=== PATIENT | male | born 1940 | race Caucasian/White ===

== ENCOUNTER 2016-08-10 20:22 | Inpatient (IN) | payer MEDICARE ==
[2016-08-10 20:53] LABS: BASO # 0.1 K/mm3 (0.0-0.2); BASO % 0.5 % (0.2-1.0); EOS % 0.3 % (0.9-2.9); HEMATOCRIT 21.2 % (32.0-52.0); HEMOGLOBIN 6.8 gm/l (14.0-18.0); IMM NEUT% 0.3 % (0-1); LYMPH # 1.4 (1.0-4.8); LYMPH % 13.9 % (15-45); MEAN CELL VOLUME 105.5 fl (80.0-94.0); MEAN CORPUSCULAR HEMOGLOBIN 33.8 pg (27.0-31.0); MEAN CORPUSCULAR HGB CONC 32.1 g/dl (33.0-37.0); MEAN PLATELET VOLUME 11.9 fl (7.4-10.4); MONO # 0.6 (0.0-0.8); MONO % 5.4 % (4-12); NEUT % 79.6 % (43-75); PLATELET COUNT 372 K/mm3 (130-400)
[2016-08-10] MEDS ORDERED: SODIUM CHLORIDE 0.9% 1,000 ML ONE (20:55)
[2016-08-10] MEDS ORDERED: ASPIRIN CHEWTAB 81 MG TABLET ONE (20:55)
[2016-08-10] MEDS ORDERED: NITROGLYCERIN OINT 1 G (DOSE) ONE (20:55)
[2016-08-10] MEDS ORDERED: MORPHINE SULFATE 2 MG/ML SYRINGE ONE (20:56)
[2016-08-10 21:00] LABS: CALCIUM 8.1 mg/dL (8.6-10.3)
[2016-08-10 21:22] LABS: INR 2.82; PROTHROMBIN TIME 31.3 SECONDS (9.3-11.4)
[2016-08-10 22:19] LABS: ABSOLUTE NEUTROPHIL COUNT 8.2 K/mm3 (1.8-7.7); BASO % 0.4 % (0.2-1.0); EOS % 0.1 % (0.9-2.9); HEMATOCRIT 20.4 % (32.0-52.0); IMM NEUT # 0.1 K/mm3 (0-0.2); IMM NEUT% 0.5 % (0-1); LYMPH # 1.3 (1.0-4.8); LYMPH % 12.5 % (15-45); MEAN CELL VOLUME 105.7 fl (80.0-94.0); MEAN CORPUSCULAR HEMOGLOBIN 33.2 pg (27.0-31.0); MEAN CORPUSCULAR HGB CONC 31.4 g/dl (33.0-37.0); MEAN PLATELET VOLUME 11.5 fl (7.4-10.4); MONO # 0.9 (0.0-0.8); MONO % 8.7 % (4-12); NEUT % 77.8 % (43-75); PLATELET COUNT 346 K/mm3 (130-400)
[2016-08-10 22:26] LABS: HEMOGLOBIN 6.4 gm/l (14.0-18.0)
[2016-08-10] MEDS ORDERED: ACETAMINOPHEN 325 MG TABLET PO PRN (23:14)
[2016-08-10] MEDS ORDERED: MENTHOL/CETYLPYRD 1 EACH LOZENGE PO PRN (23:14)
[2016-08-10] MEDS ORDERED: BLISTEX LIPSTICK 1 EACH TP PRN (23:14)
[2016-08-10] MEDS ORDERED: DIPHENHYDRAMINE HCL 25 MG CAPSULE PO ONE (23:14)
[2016-08-10] MEDS ORDERED: FUROSEMIDE 20 MG/2 ML VIAL IV ONE (23:14)
[2016-08-10] MEDS ORDERED: SODIUM CHLORIDE 0.9% 100 ML IV PRN (23:14)
[2016-08-10] MEDS ORDERED: SODIUM CHLORIDE 0.9% 500 ML IV PRN (23:14)
[2016-08-10] MEDS ORDERED: METOPROLOL TARTRATE 100 MG TABLET PO ONE (23:14)
[2016-08-10] MEDS ORDERED: TRAMADOL HCL 50 MG TABLET PO PRN (23:20)
[2016-08-10 23:21] VITALS: BMI 21.9
[2016-08-10] MEDS ORDERED: BLOOD Y PLUMSET W/CASSETTE ONE (23:32)
[2016-08-10] MEDS ORDERED: SODIUM CHLORIDE 0.9% 500 ML ONE (23:32)
[2016-08-10 23:39] LABS: ANISOCYTOSIS 1+; PLATELET ESTIMATE NORMAL (NORMAL)
[2016-08-11] MEDS: PANTOPRAZOLE SODIUM 40 MG VIAL IV SCH ×2 (01:57→20:29)
[2016-08-11] MEDS: ATROPINE SULFATE 1% 100 GTTS/BOT SOLN.DROP OD SCH ×3 (05:22→20:44)
[2016-08-11 05:50] LABS: HEMATOCRIT 26.6 % (32.0-52.0); MEAN CORPUSCULAR HEMOGLOBIN 32.5 pg (27.0-31.0); MEAN CORPUSCULAR HGB CONC 33.8 g/dl (33.0-37.0); RED CELL DISTRIBUTION WIDTH 17.8 % (11.5-14.5)
[2016-08-11 06:07] LABS: INR 2.74; PROTHROMBIN TIME 30.3 SECONDS (9.3-11.4)
[2016-08-11 06:13] LABS: TROPONIN I 0.03 ng/ml (0.0-0.06)
--- NOTE | 2016-08-11 06:18 | PDOC43 ---
- Subjective Chief Complaint: Anemia, chest pain Patient reports feeling fine. No more of the instant tired feeling and no chest pains so far (but hasn't been up much yet). Given 2 units PRBC. Hungry for breakfast. No abd pain. - Objective Vital Signs Temperature 98.1 F 08/11/16 03:05 Pulse Rate 65 08/11/16 03:05 Respiratory Rate 16 08/11/16 03:05 Blood Pressure 135/73 08/11/16 03:05 O2 Saturation by Pulse Oximetry 96 08/11/16 03:05 Oxygen Delivery Method Room Air Oxygen Flow Rate 0 Vital Signs Last 12 Hours Temp Pulse Resp BP Pulse Ox 08/11/16 03:05 98.1 F 65 16 135/73 96 08/11/16 03:01 98 F 61 16 133/68 95 08/11/16 02:31 97.9 F 63 16 140/75 96 08/11/16 02:16 97.9 F 64 16 140/72 95 08/11/16 01:54 97.9 F 64 16 140/72 95 08/11/16 01:49 97.9 F 67 15 135/70 96 08/11/16 01:19 97.9 F 68 14 130/61 98 08/11/16 00:49 98.7 F 74 16 132/71 98 08/11/16 00:19 97.9 F 75 18 144/66 97 08/11/16 00:04 97.8 F 76 20 155/72 98 08/10/16 23:51 97.8 F 76 20 155/72 98 08/10/16 23:16 98 08/10/16 23:14 97.9 F 84 18 188/69 100 Intake and Output 08/09/16 08/10/16 08/11/16 23:59 23:59 23:59 Intake Total 863 Output Total 50 1175 Balance -50 -312 General: Alert, Cooperative, No Acute Distress HEENT: Atraumatic Lungs: Clear to Auscultation Bilaterally (remarkably clear considering smoking hx) Cardiovascular: Regular Rate and Rhythm, Murmur (II/ MELQUIADES) Abdomen: Soft, Bruits (noted), Normal Bowel Sounds, Non-Distended, Other ( healed scars.), No Tenderness, No Rebounding Extremities: Other (SCDs), No Edema Neurological: Normal Speech Psych/Mental Status: Normal Affect, Normal Mood Laboratory 08/11/16 05:30 08/11/16 05:30 RBC 2.77 L MCV 96.0 H MCH 32.5 H RDW 17.8 H Current Medications: Current meds reviewed in EMR. Active Medications Acetaminophen (Tylenol) 650 mg PO Q6H PRN PRN Reason: Pain or Temperature > 100.5 F Amlodipine Besylate (Norvasc) 5 mg PO DAILY [facility] Benzocaine/Menthol (Cepacol) 1 each PO PRN PRN PRN Reason: Sore Throat Docusate Sodium (Colace) 100 mg PO BID [facility] Sodium Chloride (Sodium Chloride 0.9%) 500 mls @ 25 mls/hr IV .Q20H PRN PRN Reason: Blood Transfusion Sodium Chloride (Sodium Chloride 0.9%) 100 mls @ 25 mls/hr IV PRN PRN PRN Reason: Flush Insulin Aspart (Novolog (Dose)) 6 units SUB-Q TIDWM [facility] Insulin Glargine (Lantus (Dose)) 22 units SUB-Q QPM [facility] Levothyroxine Sodium (Levothroid) 125 mcg PO QAMAC [facility] Metoprolol Tartrate (Lopressor) 100 mg PO BID [facility] Pantoprazole Sodium (Protonix) 40 mg IV BEDTIME [facility] Last Admin: 08/11/16 01:57 Dose: 40 mg Petrolatum/Paraffin/Mineral Oil (Blistex) 1 each TP PRN PRN PRN Reason: Dry and/or chapped lips Sodium Chloride (Normal Saline 10ml Flush) 10 - 50 ml IV PRN PRN PRN Reason: IV Flush Tramadol HCl (Ultram) 50 - 100 mg PO Q6H PRN PRN Reason: Pain Warfarin Sodium (Coumadin) 5 mg PO DAILY@1600 [facility] - Problems: Assessment/Plan (1) Anemia due to blood loss Status: AcuteAssessment/Plan: Pt with decline in Hb from 11 in Apr 2016 Some dark stool noted (is on iron), but not acute drop known Pt with CKD, but Cr stable while Hb dropped, no hx EPO, other use On warfarin for hx PE No abd sx, no NSAID use, no alcohol now s/p 2 units PRBC, reported well tolerated With heme+ stool, asked Dr Dominguez if he would consider for EGD this am. On Protonix, started 08/10. (2) Chest pain Qualifiers: Chest pain type: unspecified Qualifier Code: (R07.9) Chest pain, unspecified Status: AcuteAssessment/Plan: Suspect pt was having some chest pain, but NOT signifying ACS nor NSTEMI. Pt with marked anemia, and had metoprolol withheld; both situations now corrected. Initial troponin normal, follow up pending this am. (3) CKD (chronic kidney disease) stage 3, GFR 30-59 ml/min Status: ChronicAssessment/Plan: Stable. (4) DM (diabetes mellitus) type I controlled with renal manifestation Qualifiers: Diabetes mellitus complication detail: with chronic kidney disease Chronic kidney disease stage: stage 3 (moderate) Qualifier Code: (E10.22) Type 1 diabetes mellitus with diabetic chronic kidney disease Status: ChronicAssessment/Plan: On insulin - Lantus plus prandial Novolog. Awaiting this am result. (5) Glaucoma Qualifiers: Glaucoma type: unspecified type Laterality: bilateral Qualifier Code: (H40.9) Unspecified glaucoma Status: ChronicAssessment/Plan: s/p glaucoma surgery (not iridotomy?) 08/10/16. Continue eye drops. (6) History of pulmonary embolus (PE) Status: ChronicAssessment/Plan: INR therapeutic yesterday and today. VTE Prophylaxis: on warfarin, INR therapeutic yesterday. Disposition: to be determined. Hope to scope today, consider for outpt colonoscopy later.
[2016-08-11] MEDS ORDERED: PUMP TUBING ONE (07:20)
[2016-08-11] MEDS: LACTATED RINGERS 1,000 ML IV SCH ×2 (07:26→16:21)
[2016-08-11] MEDS: LEVOTHYROXINE SODIUM 125 MCG TABLET PO SCH (07:27)
--- NOTE | 2016-08-11 08:03 | RAD ---
Exam: Portable chest COMPARISON: 08/27/2013, 04/18/2012 INDICATION: Chest pain. FINDINGS: 2 semierect AP portable views of the chest were obtained. Cardiac silhouette is within normal limits and stable. There is stable ectasia of the descending thoracic aorta. Lungs are well-inflated. There is chronic coarsening of bronchovascular markings. There is no focal airspace disease or pleural effusion. Bones of the chest wall are osteopenic but otherwise unremarkable. IMPRESSION: No acute pulmonary process.
--- NOTE | 2016-08-11 08:38 | HP ---
Daryl Jones CHIEF COMPLAINT: Chest pain. HISTORY OF PRESENT ILLNESS: The patient is a 77-year-old male without known cardiac history who is on warfarin for a remote history of pulmonary embolus. He had glaucoma surgery earlier today and has been nothing by mouth since last night and has not taken his metoprolol or other medications. He had his eye surgery done and this was uneventful. He had gone home and when waiting for lunch he noted some chest pressure across his whole chest with his arms hurting bilaterally and his fingers tingling bilaterally. His blood sugar had been somewhat up into the 200's and his son called 911 and they administered nitroglycerin which was helpful and he received additional nitroglycerin in the emergency department which has now caused his pain to be gone. He does note some dyspnea and had been somewhat out of it earlier today, but is now more himself. He was noted in the emergency room to have a hemoglobin of 12.8 and his son does acknowledge that he has been complaining of some shortness of breath and decreased activity tolerance recently. He has noted some dark stools, but has not noticed any acute blood loss, hematemesis, or abdominal pain. He has had previous colon surgery with a colon resection for diverticulitis approximately 2011 and has had endoscopy possibly as recent as 2013 both upper and lower. He has not been on any antiinflammatories. He does smoke. He does not drink any alcohol. He did have a hemoglobin of 11.0 with an MCV of 100.6 on 05/08/2016. Today his hemoglobin is 6.8, MCV of 105.5. He had a ferritin of 198 in May 2016. He does have chronic renal dysfunction and has had a creatinine that has been in the 1.9 to 2.1 region for the last couple of years and he sees a supervisor tumblers for this, but has not received Aranesp or other medications. PAST MEDICAL HISTORY: Remarkable for history of pulmonary embolus 2011, he is chronically anticoagulated for this. He has history of chronic obstructive pulmonary disease and continues to smoke. He reports 4 or 5 cigarettes a day. He does not wish to have any nicotine replacement while he is here. He has diabetes reported to be type 1 and was diagnosed in high school. He has a history of hypothyroidism, history of some hyponatremia although, today's is normal. He has not had a sodium below 130's since 2011, history of diverticulitis which prompted the previous colon resection, history of small bowel obstruction, history of glaucoma and had his right eye operated on just today, chronic kidney disease stage III to early stage IV, smoking reported to be greater than 100 pack year history. PAST SURGICAL HISTORY: Remarkable for colon resection, ileostomy, ileostomy takedown, prior transverse loop colostomy, splenectomy, volvulus, exploratory laparotomy, adhesions lysis 2000, appendectomy 1953, cataract replacement 2009, upper and lower endoscopy 2013, glaucoma eye surgery a couple of years ago for the left and just today for the right and rotator cuff surgery. CODE STATUS: Has previously been documented as do not resuscitate, but he would consider a brief intervention if felt to be appropriate. He does not wish to have any prolonged intervention particularly if poor outcome is thought to be likely. ALLERGIES: He does not have any allergies, but CORTISOL IS LISTED RAISING HIS BLOOD SUGARS. MEDICATIONS: He is takin. Acetaminophen 365 mg by mouth every 6 hours as needed. 2. He denies any antiinflammatory use. 3. Amlodipine 5 mg daily. 4. Vitamin C 500 mg by mouth daily. 5. Ferrous sulfate 325 mg daily. 6. Lantus 22 units every evening. 7. Humalog 6 units twice daily with meals plus a sliding scale of 2 to 4 additional units depending on blood sugar. 8. Levothyroxine 125 mcg daily. 9. Lovastatin 40 mg daily. 10. Toprol tartrate 100 mg by mouth twice daily, his last dose had been the evening of 08/09. 11. Multivitamin 1 by mouth daily. 12. Probiotic 1 by mouth daily. 13. Tramadol 50 to 100 mg by mouth every 6 hours as needed although, he states he has not taken this in a long time. 14. Coenzyme Q10 200 mg daily. 15. Warfarin 5 mg by mouth daily. SOCIAL HISTORY: Lives in a house by himself. He is . He does have a cousin who stays there some of the time, but she is frequently not there. He has two children in [facility]. He smokes 4 or 5 cigarettes a day. Reports no alcohol and has not had any in 10 plus years. He jokes that he quit alcohol after he got out of high school. He was of the [employer] having been in it for 6 years from 1959 to 1965. He does have a dog. No particular alevism affiliation. FAMILY HISTORY: Both his parents at age 85. His father of cancer although, may have had some time of carbon monoxide exposure as well. Mom at age 85 of Alzheimer's. REVIEW OF SYSTEMS: Eyes have been okay although, his eye hurts somewhat. He has got some eye drops in the car that his son will bring. Ears are okay although, hearing is somewhat decrease. Nose is okay. Mouth is okay. He has dentures. Neck is okay. Chest is okay at this time, no pain. He had some rapid heart rate and some palpitations noted, but not now at this time. Stomach is okay. No nausea, no vomiting, no diarrhea, no constipation problems. He did have some dark stools that were somewhat looser. Son does acknowledge that he is reported to have more fatigue in the last couple of weeks. No urinary complaints although, the son reports that he has a cast iron bladder and can hold it a long time. No history of stroke. Memory, he reports is lousy and he often will write things down. No skin complaints. No falls in several years. PHYSICAL EXAMINATION: GENERAL: Nontoxic male slightly pale. VITAL SIGNS: Blood pressure is 188/69, temperature 97.9, heart rate 84, respirations 18, 100% saturation on room air. HEENT: Eyes: The right with some conjunctival hemorrhage noted on the inferior aspect of the eye, but no icterus is noted. Pupil appears to be reactive. Left is unremarkable. Ears have cerumen bilaterally. Hearing is not bad for age. Nose is unremarkable. Mouth has dentures. Posterior pharynx is unremarkable. NECK: Supple. No JVD. No masses. No thyromegaly. LUNGS: Generally clear to auscultation with fairly good air movement bilaterally. HEART: Regular rate and rhythm with a 2/6 systolic murmur slightly hyperdynamic. ABDOMEN: Multiple scars that are well healed. No particular tenderness. No rebound. No guarding. RECTAL: Prostate is unremarkable. Some firm stool noted in the rectal vault which is trace Heme positive. EXTREMITIES: Legs with trace edema. Feet unremarkable. Perfusion and condition of feet appears to be remarkable good for a diabetic who has a long history of smoking. No ulcerations or cellulitis noted. Hands are grossly unremarkable. Some nicotine stain noted on the hands. NEURO: No focal deficits. He answers appropriately and is oriented x3. LABORATORY: White count 10.1, hemoglobin 6.8, platelets 372, MCV is 105.5. INR 2.82. Sodium 134, potassium 4.4, chloride 108, CO2 20, BUN 34, creatinine 1.9, glucose 282. LFT's are normal. Calcium 8.1. Troponin 0.02. Albumin 3.0, CK-MB 1.8, globulin 3.1. DIAGNOSTICS: No imaging so far. EKG normal sinus rhythm 81 beats per minute, FL 173, QRS 85, axis negative 56 suggested of left anterior fascicular block, QTC is 415, no significant ST changes are seen at this time. Computer reads nonspecific ST T-wave abnormality. ASSESSMENT AND PLAN: 1. Anemia presumed subacute blood loss anemia with positive Heme stool. Plan red cell transfusion of 2 units plus Protonix and recheck in the morning. We will consider esophagogastroduodenoscopy. 2. Episode of chest pain now pain free after nitroglycerin. Suspect this is more related to holding his metoprolol and his anemia. Patient was given aspirin in the emergency department, but will plan on packed red cell transfusion and resume metoprolol. Plan to continue on telemetry. He was given some nitroglycerin in emergency room, but at this point we will just recheck troponin and CPK in the morning. 3. Recent eye surgery for glaucoma. We will try to get and clarify eye drops. Emergency room doctor indicates that he had checked with the cardiopulmonary technologist chief for the eye surgeon that it is okay for him to be anticoagulated and be on aspirin. 4. Diabetes mellitus type 1 . We will continue on regimen of Lantus and capillary blood glucose for sliding scale. 5. Chronic obstructive pulmonary disease. Consider nebulizers if needed although, he does not have any respiratory complaints at this time. 6. Remote history of diverticulitis with previous colectomy long healed. He has no particular abdominal pains. Could consider for lower endoscopy if upper endoscopy is not revealing. 7. Chronic renal disease stage III borderline stage IV. This appears to be stable. Could question its role in his anemia, however, he has had the same creatinine for a considerable time with normal hemoglobin between 11 and 13 in the last year. 8. Limited code status. 9. Remote history of pulmonary embolus. Continue warfarin at this time unless significant additional blood loss occurs. We will recheck INR in the morning. He is current therapeutic. 10. Venous thrombosis prophylaxis. He is currently on warfarin. JOB: [id number] CC: [facility] Dr. Posada
[2016-08-11] MEDS ORDERED: IV START KIT ONE (11:48)
[2016-08-11] MEDS ORDERED: SODIUM CHLORIDE 0.9% 1,000 ML ONE (11:49)
[2016-08-11] MEDS ORDERED: PROPOFOL 20 ML IV ONE (11:56)
[2016-08-11] MEDS: INSULIN ASPART (DOSE) 100 UNITS/1 ML SUB-Q SCH ×3 (12:38→17:54)
[2016-08-11] MEDS: AMLODIPINE BESYLATE 5 MG TABLET PO SCH (12:38)
[2016-08-11] MEDS: DOCUSATE SODIUM 100 MG CAPSULE PO SCH ×2 (12:38→20:29)
[2016-08-11] MEDS: METOPROLOL TARTRATE 100 MG TABLET PO SCH ×2 (12:38→20:30)
[2016-08-11] MEDS: [UNRECOGNIZED DRUG - OTHER] OS SCH ×2 (12:39→20:34)
[2016-08-11] MEDS: [UNRECOGNIZED DRUG - OTHER] OD SCH ×4 (12:39→20:34)
[2016-08-11 13:32] LABS: HEMATOCRIT 29.8 % (32.0-52.0); HEMOGLOBIN 9.8 gm/l (14.0-18.0)
[2016-08-11] MEDS: OFLOXACIN OD SCH ×3 (14:53→20:54)
[2016-08-11] MEDS ORDERED: WARFARIN SODIUM 5 MG TABLET PO SCH (16:00)
[2016-08-11 16:35] LABS: HELICOBACTER PYLORII DETECTION NEGATIVE (NEGATIVE)
[2016-08-11] MEDS ORDERED: INSULIN GLARGINE (DOSE) 100 UNITS/ML UNIT SUB-Q SCH (20:00)
[2016-08-11] MEDS: INSULIN ASPART (DOSE) 100 UNITS/1 ML SUB-Q PRN (20:52)
[2016-08-11 21:02] LABS: FOLIC ACID > 23.7 ng/mL (>5.9)
[2016-08-12] MEDS ORDERED: NITROGLYCERIN 0.4 MG/TAB.SUBL BOT SL ONE (05:38)
[2016-08-12 05:45] LABS: ABSOLUTE NEUTROPHIL COUNT 8.8 K/mm3 (1.8-7.7); BASO # 0.1 K/mm3 (0.0-0.2); BASO % 0.6 % (0.2-1.0); EOS # 0.4 (0.0-0.5); HEMATOCRIT 26.9 % (32.0-52.0); HEMOGLOBIN 8.8 gm/l (14.0-18.0); IMM NEUT% 0.3 % (0-1); LYMPH # 1.9 (1.0-4.8); LYMPH % 14.7 % (15-45); MEAN CELL VOLUME 98.5 fl (80.0-94.0); MEAN CORPUSCULAR HEMOGLOBIN 32.2 pg (27.0-31.0); MEAN CORPUSCULAR HGB CONC 32.7 g/dl (33.0-37.0); MONO # 1.4 (0.0-0.8); MONO % 11.3 % (4-12); NEUT % 70.1 % (43-75); PLATELET COUNT 307 K/mm3 (130-400); RED CELL DISTRIBUTION WIDTH 18.6 % (11.5-14.5)
[2016-08-12] MEDS: LACTATED RINGERS 1,000 ML IV SCH (07:48)
[2016-08-12] MEDS: LEVOTHYROXINE SODIUM 125 MCG TABLET PO SCH (07:49)
[2016-08-12] MEDS ORDERED: ALBUTEROL NEB 2.5 MG/3 ML VIAL.NEB NEB PRN (10:06)
--- NOTE | 2016-08-12 10:16 | PDOC43 ---
- Subjective Chief Complaint: Anemia, chest pain Subjective: Reports Chest Pain (recurrent despite transfusion, S/P myoview this am), Denies Fever - Objective Vital Signs Temperature 98.7 F 08/12/16 08:00 Pulse Rate 73 08/12/16 08:00 Respiratory Rate 16 08/12/16 08:00 Blood Pressure 149/68 08/12/16 08:00 O2 Saturation by Pulse Oximetry 94 08/12/16 08:00 Oxygen Delivery Method Nasal Cannula Oxygen Flow Rate 2 Intake and Output 08/11/16 08/12/16 08/13/16 06:59 06:59 06:59 Intake Total 863 1814 Output Total 1225 1900 Balance -362 -86 General: Alert, Cooperative, No Acute Distress HEENT: Mucous membr. moist/pink Lungs: Diminished at Bases Cardiovascular: Regular Rate and Rhythm Abdomen: Soft, Normal Bowel Sounds, Non-Distended, No Tenderness Extremities: No Edema Skin: Warm, Dry, Intact Laboratory 08/12/16 05:30 08/12/16 05:30 08/12/16 05:30 RBC 2.73 L MCV 98.5 H MCH 32.2 H MCHC 32.7 L RDW 18.6 H BUN 26 H Estimated GFR 34 L Calcium 8.0 L Current Medications: Current meds reviewed in EMR. - Problems: Assessment/Plan (1) Anemia due to blood loss Status: AcuteAssessment/Plan: Pt with decline in Hb from 11 in Apr 2016 Some dark stool noted (is on iron), but not acute drop known Pt with CKD, but Cr stable while Hb dropped, no hx EPO, other use On warfarin for hx PE No abd sx, no NSAID use, no alcohol now s/p 2 units PRBC, reported well tolerated With heme+ stool, Dr Dominguez performed EGD on 08/13 which showed mild gastritis. On Protonix, started 08/10, HGB changed from 9.8 to 8.8 overnight- will recheck. (2) Chest pain Qualifiers: Chest pain type: unspecified Qualifier Code: (R07.9) Chest pain, unspecified Status: AcuteAssessment/Plan: Persistent chest pain concerning for but atypical of angina. Cardiac enzymes negative. 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 Seems well controlled (4) CKD (chronic kidney disease) stage 3, GFR 30-59 ml/min Status: ChronicAssessment/Plan: Stable. (5) Glaucoma Qualifiers: Glaucoma type: unspecified type Laterality: bilateral Qualifier Code: (H40.9) Unspecified glaucoma Status: ChronicAssessment/Plan: s/p glaucoma surgery (not iridotomy?) 08/10/16. Continue eye drops. (6) History of pulmonary embolus (PE) Status: ChronicAssessment/Plan: INR therapeutic yesterday and today. (7) * COPD, Chronic Airway Obstructive NEC Status: ChronicAssessment/Plan: with some transient hypoxia this am- repeat CXR VTE Prophylaxis: on warfarin, INR therapeutic today. Disposition: Possible discharge this afternoon, but most likely in am
--- NOTE | 2016-08-12 10:36 | RAD ---
CHEST - 2 VIEWS COMPARISON: Chest 2 views, 08/10/2016 HISTORY: Hypoxia. FINDINGS: Views: Frontal and lateral chest Lungs: Increased interstitial markings in both lung bases compared to prior study. Heart and vessels: No change. Elongated thoracic aorta. Trachea and bronchi: Normal Mediastinum and fercho: Normal Costophrenic sulci: Normal Chest wall and bones: Acute finding. Old rotator cuff tear of the right shoulder. Old compression fracture of T7. Upper abdomen: Normal. IMPRESSION: 1. Compared to 08/10/2016, increased interstitial markings in both lung bases, evidence of some interstitial edema or infiltrate from pneumonia.
[2016-08-12 10:38] LABS: HEMATOCRIT 30.6 % (32.0-52.0); HEMOGLOBIN 9.9 gm/l (14.0-18.0)
[2016-08-12] MEDS ORDERED: REGADENOSON 0.1 MG DOSE IV ONE (10:40)
[2016-08-12] MEDS: METOPROLOL TARTRATE 100 MG TABLET PO SCH (11:16)
[2016-08-12] MEDS: INSULIN ASPART (DOSE) 100 UNITS/1 ML SUB-Q SCH ×3 (11:17→13:26)
[2016-08-12] MEDS: DOCUSATE SODIUM 100 MG CAPSULE PO SCH (11:17)
[2016-08-12] MEDS: AMLODIPINE BESYLATE 5 MG TABLET PO SCH (11:17)
[2016-08-12] MEDS: ATROPINE SULFATE 1% 100 GTTS/BOT SOLN.DROP OD SCH (11:23)
[2016-08-12] MEDS: OFLOXACIN OD SCH (11:23)
[2016-08-12] MEDS: [UNRECOGNIZED DRUG - OTHER] OS SCH (11:23)
[2016-08-12] MEDS: [UNRECOGNIZED DRUG - OTHER] OD SCH (11:23)
[2016-08-12] MEDS: INSULIN ASPART (DOSE) 100 UNITS/1 ML SUB-Q PRN (11:36)
[2016-08-12] MEDS ORDERED: DOXYCYCLINE HYCLATE 100 MG TABLET PO SCH (12:00)
--- NOTE | 2016-08-12 12:17 | NUC MED ---
CARDIAC STRESS MULTIPLE STUDY COMPARISON: None HISTORY: Chest pain. Diabetic and smoker. TECHNIQUE: Gated SPECT performed after IV injection sestamibi at rest and again after pharmacologic stress. End diastolic and end systolic measurements of left ventricular volume were used to calculate the ejection fracture. Computer generated wall motion reproduction was performed. DOSE: Sestamibi (rest): 11.2 mCi Sestamibi (stress): 36.2 mCi Lexiscan: 0.4 mg ECG findings: See separate report by Dr. Eliseo Hunter. FINDINGS: Left ventricle perfusion at rest: Normal Left ventricle perfusion at stress: Normal Ejection fraction: 75% Wall motion: Normal IMPRESSION: No fixed or reversible defect. Normal ejection fraction of greater than 50 percent and normal wall motion.
[2016-08-12 12:46] VITALS: BP 168/82
--- NOTE | 2016-08-13 16:30 | DS ---
JOJO VANG [id number] DATE OF ADMISSION: 08/10/2016 DATE OF DISCHARGE: 08/12/2016 DISCHARGE DIAGNOSES: 1. Iron-deficiency anemia due to chronic blood loss. 2. Chronic anticoagulation therapy on Warfarin for history of pulmonary embolism. 3. Atypical chest pain. 4. Insulin-dependent diabetes. 5. Chronic stage III kidney disease. 6. Glaucoma. 7. Chronic obstructive pulmonary disease. 8. Community acquired bacterial pneumonia. PROCEDURES: Performed during the hospitalization included transfusion of 2 units of packed red blood cells performed on 08/11/2016. Other procedures included an upper endoscopy performed by Dr. Joe Dominguez on 08/11/2016 with findings of mild gastritis. Patient also underwent a myocardial perfusion study with nuclear medicine on 08/12/2016 showing no fixed, or reversible defect and a normal ejection fraction, with normal wall motion. CONSULTATION: Included a gastrointestinal consultation with Dr. Joe Dominguez. SUMMARY OF ADMISSION AND HOSPITAL COURSE: The patient is a 77-year-old male who presented to [facility] Emergency Department with complaints of chest pain worse with activity. In the emergency department, he was found to have Hemoccult positive stool and a hemoglobin of 6.8. Cardiac enzymes were negative. EKG showed no acute changes. He was admitted by the Hospitalist, treated with Protonix and transfused. His chest pain symptoms resolved initially after treatment of his anemia and resumption of metoprolol, but on 08/12/2016 he had recurrent chest pain symptoms, and 08/11/2016 he had recurrent chest pain symptoms. He underwent myocardial perfusion study on 08/12/2016 which was negative. He had a chest x-ray showing a possible early community acquired pneumonia. He was started on doxycycline for this. On 08/12/2016 the patient's oxygen saturations were stable. He had stable hemoglobin levels at 9.9 and was felt to be medical stable for discharge home. PHYSICAL EXAM: VITAL SIGNS: Vital signs at discharge showed a temperature of 97.9, pulse 62, blood pressure 168/82, respirations 17, oxygen saturation is 97% on room air. Body mass index was 22. Weight is 69.2 kg. GENERAL: This is a well-developed, well-nourished elderly male in no acute distress. HEENT: Unremarkable. LUNGS: Clear to auscultation bilaterally. CARDIOVASCULAR: Exam reveals a regular rate and rhythm without a murmur. ABDOMEN: Soft, nontender, nondistended with positive bowel sounds. EXTREMITIES: Show no peripheral edema. DISCHARGE LABORATORY STUDIES: His hemoglobin was 9.9, and hematocrit 30.6. Chemistry prolife on 08/12/2016 showed a stable creatinine at 1.9. Cardiac enzymes remained negative. A B12 and a folic acid level were measured and both were within normal limits. DISCHARGE MEDICATIONS: His discharge medications include: 1. Doxycycline 100 mg twice daily for 10 days. 2. I did prescribe nitroglycerine 0.4 mg sublingual every 5 minutes for chest pain, although he did not have any evidence of coronary artery disease on his workup, the symptoms were relieved with nitroglycerin. 3. He is also prescribed Prilosec 40 mg daily for the next month. He will resume his usual home medications which include: 1. Lantus 22 units subcutaneous in the evening. 2. Levothroid 125 mcg every morning. 3. Vitamin C 500 mg daily. 4. Norvasc 5 mg daily. 5. Iron sulfate 325 mg daily. 6. Lispro insulin 6 units subcutaneous 3 times daily with meals. 7. Lovastatin 40 mg daily. 8. Lopressor 100 mg twice daily. 9. Multivitamin once daily. 10. Probiotic once daily. 11. Warfarin 5 mg daily. 12. Tylenol 650 mg every 6 hours as needed for pain. 13. Coenzyme Q10 at 200 mg daily. 14. Tramadol 50 to 100 mg every 6 hours as needed for pain. 15. Prednisone forte eye drops 1% eye drops 1 drop in the left eye twice daily, 1 drop in the right eye 4 times daily. 16. Ofloxacin eye drops 1 drop in each eye 4 times daily. 17. Atropine 1% eye drops 1 drop in the right eye every 4 hours. INSTRUCTIONS: He is instructed to follow up with his primary care provider, nurse nasir Hays as scheduled on 08/17/2016 at 9:30 a.m. He is also advised to follow up with the [facility] for anticoagulation monitoring that week. SHRUTI/deyanira Cc: Manan Thompson nurse practitioner
--- NOTE | 2016-08-15 14:00 | SURGPATH ---
[facility] [address] [place] [id number] Patient Name: JOJO VANG MR#: [id number] : 1940 Gender: M Specimen #: [id number] Collected: 08/11/2016 Received: 08/14/2016 Reported: 08/15/2016 Submitting Phys: KATI MOSHER Copy To Phys: [facility] GIGENA, ROBERTA GIBSON III Clinical History / Pre-Operative Diagnosis: Anemia, positive blood in stool; rule out gastritis Specimen Source / Surgical Procedure Performed: Stomach antrum biopsy Interpretation: GASTRIC ANTRUM, BIOPSY: - MILD CHRONIC GASTRITIS Electronically Signed Out Darrell Vo M.D. Gross Description: The specimen is received in formalin labeled with the patient's name and "stomach antrum biopsy". The specimen consists of two fragments of white soft tissue, 1.2 x 0.4 x 0.2 cm in aggregate. Submitted in toto in one cassette. FIDELINA Pearce Microscopic Description: Levels reveal fragments of gastric mucosa with focal mild expansion of lamina propria by chronic inflammatory cells. Ulceration, dysplasia and malignancy are not seen. A Helicobacter immunostain reveals absence of organisms. (Analyte-specific reagents (ASR) are used in many laboratory tests necessary for standard medical care and generally do not require FDA approval. This test was developed and its performance characteristics determined by [facility]. It has not been cleared or approved by the [place]. Food and Drug Administration. [facility] [place] Clinical Laboratory Improvement Amendments of 1988 as qualified to perform high complexity clinical laboratory testing. All controls stain as expected.) 1: 75992, 83498 K29.50
== END 2016-08-12 13:40 | disposition home or self-care (01) | DRG 377 ==
LOC: ED 20:22 → MS 21:59
PROVIDERS: ADMIT Family Medicine; ATTEND Family Medicine
PROC: 30233N1 Transfusion of Nonautologous Red Blood Cells into Peripheral Vein, Percutaneous Approach (ICD-10-PCS; principal; 2016-08-11)
PROC: 0DB68ZX Excision of Stomach, Via Natural or Artificial Opening Endoscopic, Diagnostic (ICD-10-PCS; 2016-08-11)
DX: K29.51 Unspecified chronic gastritis with bleeding (principal); J15.9 Unspecified bacterial pneumonia; D62 Acute posthemorrhagic anemia; D64.9 Anemia, unspecified; Z79.01 Long term (current) use of anticoagulants; Z86.711 Personal history of pulmonary embolism; J44.9 Chronic obstructive pulmonary disease, unspecified; F17.210 Nicotine dependence, cigarettes, uncomplicated; E10.9 Type 1 diabetes mellitus without complications; E03.9 Hypothyroidism, unspecified; N18.3 Chronic kidney disease, stage 3 (moderate); H40.9 Unspecified glaucoma

== ENCOUNTER 2016-08-25 10:24 | Day surgery (SDC) | payer MEDICARE ==
[~2016-08-25 10:24] MED LIST: LACTATED RINGERS 1,000 ML IV SCH
[2016-08-25] MEDS ORDERED: IV START KIT ONE (10:47)
[2016-08-25] MEDS ORDERED: LACTATED RINGERS 1,000 ML ONE (10:47)
[2016-08-25] MEDS ORDERED: SODIUM CHLORIDE 0.9% 1,000 ML ONE (11:15)
[2016-08-25] MEDS ORDERED: SODIUM CHLORIDE 0.9% 1,000 ML IV SCH (11:30)
[2016-08-25] MEDS ORDERED: PROPOFOL 20 ML IV ONE (11:49)
[2016-08-25] MEDS ORDERED: LIDOCAINE 2% (PRES FREE) 5 ML VIAL ONE (11:49)
--- NOTE | 2016-08-29 13:13 | SURGPATH ---
[facility] [address] [place] [id number] Patient Name: JOJO VANG MR#: [id number] : 1940 Gender: M Specimen #: [id number] Collected: 08/25/2016 Received: 08/28/2016 Reported: 08/29/2016 Submitting Phys: KATI MOSHER Copy To Phys: [facility] GIGENA, JEAN PAUL Clinical History / Pre-Operative Diagnosis: BLOOD LOSS; ANEMIA Specimen Source / Surgical Procedure Performed: PROXIMAL TRANSVERSE COLON POLYP Interpretation: PROXIMAL TRANSVERSE COLON, POLYP, BIOPSY: - TUBULAR ADENOMA Electronically Signed Out Radha Rios M.D. Gross Description: The specimen is received in a formalin filled container labeled with the patient's name and "proximal transverse colon polyp". A polypoid anne biopsy is 0.3 cm. Totally embedded in one cassette. Gatito Pena PNikolai Microscopic Description: Sections show fragments of adenomatous colonic mucosa without high grade dysplasia. 1: 02614 D12.3
== END 2016-08-25 12:36 | disposition home or self-care (01) ==
LOC: SDC 10:24
PROVIDERS: ATTEND Internal Medicine Gastroenterology
PROC: 0DBE8ZX Excision of Large Intestine, Via Natural or Artificial Opening Endoscopic, Diagnostic (ICD-10-PCS; principal; 2016-08-25)
DX: D12.3 Benign neoplasm of transverse colon (principal); K57.30 Diverticulosis of large intestine without perforation or abscess without bleeding; D64.9 Anemia, unspecified; F17.210 Nicotine dependence, cigarettes, uncomplicated; J44.9 Chronic obstructive pulmonary disease, unspecified; E10.22 Type 1 diabetes mellitus with diabetic chronic kidney disease; I12.9 Hypertensive chronic kidney disease with stage 1 through stage 4 chronic kidney disease, or unspecified chronic kidney disease; N18.3 Chronic kidney disease, stage 3 (moderate); E03.9 Hypothyroidism, unspecified; Z86.711 Personal history of pulmonary embolism